=== PATIENT | male | born 1975 | race Caucasian/White ===

== ENCOUNTER 2020-09-03 18:15 | Emergency (ER) | payer MEDICAID, SELFPAY ==
--- NOTE | 2020-09-03 | XR_ITS ---
EXAMINATION: XR CHEST CLINICAL INFORMATION: Chest pain COMPARISON: None TECHNIQUE: Frontal portable view of the chest was obtained. 7:00 PM FINDINGS: No significant abnormality is noted involving the heart, lungs, mediastinum, bony thorax or soft tissues. IMPRESSION: Unremarkable examination.
--- NOTE | 2020-09-03 | CT_ITS ---
EXAMINATION: CT ABDOMEN AND PELVIS WITH CONTRAST CLINICAL INFORMATION: Left-sided pain. History of colostomy. COMPARISON: None TECHNIQUE: Multidetector volumetric images were obtained from the superior aspect of the liver through the pubic symphysis following administration 85 mL of Omnipaque 350 intravenous contrast. Sagittal and coronal reformatted images were obtained on the technologist's workstation. Oral contrast: No This CT examination was performed using dose optimization techniques as appropriate, variously including the following: *Automated exposure control *Adjustment of mA and/or kV according to patient size (this includes techniques or standardized protocols for targeted exams where dose is matched to indication/reason for exam; i.e. extremities or head) *Use of iterative reconstruction technique DLP: 481 mGy-cm FINDINGS: LUNG BASES: The visualized lung bases are unremarkable. LIVER, GALLBLADDER, AND BILIARY TREE: The liver is normal in size, shape, and attenuation. No focal hepatic lesion or biliary ductal dilatation is present. The gallbladder is unremarkable with no evidence of radiopaque gallstones, gallbladder wall thickening, or obvious pericholecystic inflammatory changes. PANCREAS: Unremarkable. SPLEEN: Unremarkable. ADRENAL GLANDS: Unremarkable. KIDNEYS AND URETERS: The kidneys are normal in size, shape, and attenuation. No hydronephrosis, hydroureter, or calculi seen. No perinephric stranding. BLADDER: Unremarkable. ABDOMINAL WALL/GASTROINTESTINAL TRACT: Status post partial colectomy with Avila's pouch and left-sided colostomy. No obstruction or edema of bowel. The ostomy site appears normal with no inflammation or fluid collection or parastomal hernia. Moderate volume of stool in the colon. The appendix is not seen. No inflammation the mesentery. LYMPH NODES: Normal. VASCULAR: Unremarkable. PELVIC VISCERA: Unremarkable. OSSEOUS STRUCTURES: Multilevel degenerative spondylosis of the spine. IMPRESSION: Status post partial colectomy with Avila's pouch and left-sided colostomy. No acute abnormality.
[2020-09-03 18:22] VITALS: BP 138/76; PULSE 66; PULSE 80; RESP 15; TEMP 37; O2SAT 95; O2SAT 99; BMI 19.2
[2020-09-03 18:53] VITALS: BP 138/76; PULSE 80; RESP 15; TEMP 37; O2SAT 99
--- NOTE | 2020-09-03 19:14 | ED_ITS ---
HPI - Abdominal Pain General Chief Complaint: Abdominal Pain Stated Complaint: cp/abd pain Time Seen by Provider: 09/03/20 18:44 Source: patient Mode of arrival: ambulatory History of Present Illness HPI narrative: 45-year-old male with a history of an ostomy complaining of left-sided abdominal pain. Radiating up to his chest. Patient states has been going on for couple days the abdomen without any vomiting. Has not had any stool from the ostomy. patient also states of pain radiating to his chest, chest has been hurting for 4 days which got constant over the past 3 hours. No diaphoresis no shortness of breath. No fevers or chills. MD elicited complaint: abdominal pain Severity: moderate Quality: sharp Radiation: LUQ and epigastric Exacerbating factors: eating Relieving factors: nothing Related Data Allergies Allergy/AdvReac Type Severity Reaction Status Date / Time No Known Allergies Allergy Unverified 09/03/20 18:31 Review of Systems Review of Systems Yes all other systems are reviewed and are negative Comments: Constitutional : No Weight loss, No Fever, No Chills, No Night Sweats, No Fatigue, No Malaise ENT/Mouth : No Hearing loss, No Ear Pain, No Nasal Congestion, No Sinus Pain, No Hoarseness, No sore throat, No Rhinorrhea, No Swallowing Difficulty Eyes: No Eye Pain, No Swelling, No Redness, No Foreign Body, No Discharge, No Vision Changes Cardiovascular : positive Chest Pain, No SOB, No Dyspnea on Exertion, No Orthopnea, No Edema, No Palpitations Respiratory : No Cough, No Sputum, No Wheezing, No Smoke Exposure, No Dyspnea Gastrointestinal : No Nausea, No Vomiting, No Diarrhea, No Constipation, Positive abdominal. positive ostomy Pain, No Hematochezia, No Melena Genitourinary : no irregular bleeding, No Dysuria, No Urinary Frequency, No Hematuria, No Urinary Incontinence, No Urgency, No Flank Pain, No Urinary Flow Changes, No Hesitancy Musculoskeletal : No joint pain, No Myalgias, No Joint Swelling Skin : No Skin Lesions, No rash Neuro : No Weakness, No Numbness, No Paresthesias, No Loss of Consciousness, No Dizziness, No Headache Psych : No Anxiety/Panic, No Depression, No SI/HI/AH/VH, No Social Issues, Heme/Lymph: No Bruising, No Bleeding,No Lymphadenopathy Endocrine : No Polyuria, No Polydipsia, No Temperature Intolerance Physical Exam Vital Signs and I&O and Narrative: Vital Signs and I&O: Vital Signs Temp 98.9 F 09/03/20 22:14 Pulse 57 09/03/20 22:14 Resp 16 09/03/20 20:29 BP 116/70 09/03/20 20:29 Pulse Ox 98 09/03/20 22:14 Intake & Output 09/03/20 09/03/20 09/04/20 06:59 18:59 06:59 Intake Total 1000 / 1000 Balance 1000 / 1000 Weight 68.039 kg Intake: Intake, IV Amoun t 1000 / 1000 0.9 % Sodium C hloride 1,000 ml 1000 / 1000 @ 999 mls/hr I VCONT .Q1H1M ARIELLA Rx#:[id number] Body Mass Index 19.2 vital signs reviewed Const: Other: Appearance: Alert. Oriented X3. No acute distress. mild discomfort Eyes: Pupils equal, round and reactive to light. ENT: Pharynx normal. Neck: Normal inspection. Neck supple. CVS: Normal heart rate and rhythm. Pulses normal. positive S1-S2 Respiratory: No respiratory distress. Breath sounds normal. Abdomen: Soft and \tender To left side abdomen. intact ostomy without gas in bag. no rash Skin: Skin warm and dry. Normal skin color. Normal skin turgor. Extremities: No lower extremity edema. No lower extremity edema. Neuro: Oriented X 3. No motor deficit. No sensory deficit. Course Course Course Narrative: patient re-examined throughout emergency department without signs of peritonitis. CT scan abdomen pelvis negative. Troponin negative EKG negative chest x-ray negative. At this point with chronicity of symptoms I doubt the patient has acute coronary syndrome. MDM - Abdominal Pain MDM Narrative Medical decision making narrative: 45-year-old male with a history of ostomy came in for abdominal pain however had a negative workup. This point patient will need to follow up with [facility] who follows him for his ostomy. Patient states he has not eaten solid food for several months however with chronicity of symptoms I do not think there is any emergency at this time Lab Data Result diagrams: 09/03/20 20:40 09/03/20 20:40 Labs: Lab Results 09/03/20 09/03/20 09/03/20 Range/Units 20:40 20:40 20:40 WBC 8.0 (4.8-10.8) X10*3/uL RBC 4.36 L (4.60-5.80) X10*6/uL Hgb 13.8 L (14.0-18.0) g/dl Hct 39.7 L (42-52) % MCV 91.1 (80-98) fL MCH 31.7 (27.0-33.0) pg MCHC 34.8 (31.0-36.0) g/dl RDW 12.5 (11.0-16.0) % Plt Count 268 (160-400) X10*3/uL MPV 9.5 (9.4-12.4) fL Immature Gran % (Auto) 0.2 (0.0-0.4) % Neut % (Auto) 59.6 (45-73) % Lymph % (Auto) 30.6 (20-40) % Tripp % (Auto) 7.0 (2-11) % Eos % (Auto) 2.1 (0-4) % Baso % (Auto) 0.5 (0-2) % Lymph # (Auto) 2.5 (1.2-4.9) X10*3/uL Tripp # (Auto) 0.6 (0.1-1.2) X10*3/uL Eos # (Auto) 0.2 (0.0-0.4) X10*3/uL Baso # (Auto) 0.0 (0.0-0.2) X10*3/uL Abs Immat Gran (auto) 0.02 (0.00-0.03) X10*3/uL Absolute Neuts (auto) 4.8 (2.0-8.3) X10*3/uL Absolute Nucleated RBC 0.000 (0.0-0.012) X10*3/uL Nucleated RBC % (auto) 0.0 (0.0-0.2) /100WBC Sodium 139 (135-145) mmol/L Potassium 3.9 (3.3-5.1) mmol/l Chloride 105 (96-108) mmol/L Carbon Dioxide 28 (22-29) mmol/L Anion Gap 10 L (12-20) BUN 8 L (9-16) mg/dL Creatinine 0.85 (0.5-1.4) mg/dL Estim Creat Clear Calc 104.5 Estimated GFR > 60 Random Glucose 81 (60-115) mg/dL Calcium 8.7 (8.4-10.2) mg/dL Total Bilirubin 0.5 (0.0-1.0) mg/dL Direct Bilirubin 0.2 (0.0-0.5) mg/dL AST 17 (5-37) U/L ALT 17 (0-40) U/L Alkaline Phosphatase 51 (39-117) U/L Troponin I High Sens < 3.5 (<3.5-35.0) ng/L Total Protein 6.2 L (6.5-8.0) g/dL Albumin 4.1 (3.5-5.0) g/dL Lipase 31 (8-78) U/L Discharge Plan Discharge Clinical Impression: Abdominal pain, Chest pain Patient Disposition: Home, Self-Care Instructions: Chest Pain (ED), Abdominal Pain (ED) Additional Instructions: Thank you for visiting the emergency department today. If your symptoms worsen or do not resolve completely please return to the emergency department immediately or call 911. if he have any questions please call your primary care physician Referrals: Og Hernandes MD [Primary Care Provider] - 2 days Interventions: ED Discharge Assessment Last Done: 09/03/20 23:30 Discharge Date/Time: 09/03/20 23:32 [facility] Past Medical History Medical History No known health problems Surgical History H/O colectomy Social History Social History Smoking Status: Current every day smoker Use of substances other than those prescribed or required for medical reasons: No Advance Directives: No Advance Directives Information Provided: Yes
[2020-09-03] MEDS: Morphine Sulfate 4 MG/ML CARTRIDGE IVPUSH ×2 (19:33→20:37)
[2020-09-03] MEDS: ondansetron HCL 4 MG/2 ML VIAL IVPUSH (19:33)
[2020-09-03] MEDS: 0.9 % Sodium Chloride 1,000 ML 999 ML IVCONT (19:34)
[2020-09-03 20:29] VITALS: BP 116/70; PULSE 57; RESP 16; TEMP 36.6; O2SAT 98
[2020-09-03 20:45] LABS: MANUAL DIFF FLAG NO
[2020-09-03 20:49] LABS: Basophils Percent Auto 0.5 % (0-2); Eosinophils Absolute Auto 0.2 X10*3/uL (0.0-0.4); Eosinophils Percent Auto 2.1 % (0-4); Hematocrit 39.7 % (42-52); Hemoglobin 13.8 g/dl (14.0-18.0); Imm Gran Abs Auto 0.02 X10*3/uL (0.00-0.03); Imm Gran Pct Auto 0.2 % (0.0-0.4); Lymphocytes Absolute Auto 2.5 X10*3/uL (1.2-4.9); Lymphocytes Percent Auto 30.6 % (20-40); Mean Corpuscular HGB Conc 34.8 g/dl (31.0-36.0); Mean Corpuscular Hemoglobin 31.7 pg (27.0-33.0); Mean Corpuscular Volume 91.1 fL (80-98); Mean Platelet Volume 9.5 fL (9.4-12.4); Monocytes Absolute Auto 0.6 X10*3/uL (0.1-1.2); Neutrophils Absolute Auto 4.8 X10*3/uL (2.0-8.3); Neutrophils Percent Auto 59.6 % (45-73); Platelet Count 268 X10*3/uL (160-400); Red Blood Count 4.36 X10*6/uL (4.60-5.80); Red Cell Distribution Width 12.5 % (11.0-16.0)
[2020-09-03 21:08] LABS: Alanine Aminotransferase 17 U/L (0-40); Albumin Level 4.1 g/dL (3.5-5.0); Alkaline Phosphatase 51 U/L (39-117); Anion Gap 10 (12-20); Aspartate Amino Transferase 17 U/L (5-37); Bilirubin Direct 0.2 mg/dL (0.0-0.5); Bilirubin Total 0.5 mg/dL (0.0-1.0); Blood Urea Nitrogen 8 mg/dL (9-16); Calcium 8.7 mg/dL (8.4-10.2); Carbon Dioxide 28 mmol/L (22-29); Chloride 105 mmol/L (96-108); Creatinine Clr Calc Pharmacy 104.5; Estimated Glomerular Filt Rate > 60; Glucose Random 81 mg/dL (60-115); Lipase 31 U/L (8-78); Potassium 3.9 mmol/l (3.3-5.1); Sodium 139 mmol/L (135-145); Total Protein 6.2 g/dL (6.5-8.0)
[2020-09-03 21:13] LABS: Troponin-I High Sensitivity < 3.5 ng/L (<3.5-35.0)
[2020-09-03] MEDS: iohexoL 350 MG/ML 100 ML INFUS..BTL IV (22:04)
[2020-09-03 22:14] VITALS: PULSE 57; TEMP 37.2; O2SAT 98
== END 2020-09-03 23:32 | disposition home or self-care (01) ==
PROVIDERS: Emergency Provider Emergency Medicine; PCP Family Medicine
DX: R10.12 Left upper quadrant pain (principal); R10.13 Epigastric pain; R07.9 Chest pain, unspecified; F17.200 Nicotine dependence, unspecified, uncomplicated; Z93.3 Colostomy status
CPT/HCPCS: 36415; 71045; 74177; 80048; 80076; 83690; 84484; 85025; 96361; 96374; 96375; 96376; 99284; J2270

== ENCOUNTER 2022-04-21 12:58 | Day surgery (SDC) | payer MEDICAID, SELFPAY ==
[2022-04-21 13:34] VITALS: BMI 17.3
[2022-04-21 13:38] VITALS: BP 100/58; PULSE 57; RESP 16; TEMP 36.4; O2SAT 96
[2022-04-21] MEDS: Lactated Ringers 1,000 ML 100 ML IVCONT (14:00)
--- NOTE | 2022-04-21 14:22 | HO.ANESPROP2 ---
HPI - Anesthesia Eval Consult details Narrative: 46 M for colonoscopy [facility] Past Medical History Medical History (Updated 04/21/22 @ 13:48 by Brianna Krishnan, RN) Colostomy in place Functional capacity: independent ambulation Family History Family history of problems with anesthesia: No Surgical History Surgical History (Updated 04/21/22 @ 13:47 by Brianna Krishnan RN) H/O colectomy Hx of tonsillectomy History of Problems with Anesthesia: No Social History Social History Alcohol intake: never Patient Tobacco Use Status: Former Tobacco user Tobacco use type: Cigarette Smoked in Last 30 Days: No Use of substances other than those prescribed or required for medical reasons: No Are you DNR?: No Advance Directives: No Advance Directives Information Provided: Yes Recently lost weight without trying: Yes How much weight loss: 34pounds or more Eating poorly because of decreased appetite: Yes Nutrition screen score: 7 Nutrition Risks: Emaciation/Cachexia Meds Allergies Allergy/AdvReac Type Severity Reaction Status Date / Time No Known Allergies Allergy Verified 04/21/22 13:48 Active Medications: Current Medications Lactated Ringer's (Lr) 1,000 mls @ 100 mls/hr IVCONT .Q10H ARIELLA Last Admin: 04/21/22 14:00 Dose: 100 mls/hr Documented by: Home Medications Medication Instructions Recorded Confirmed Last Taken Type erythromycin 500 mg tablet,delayed mg PO 04/21/22 04/21/22 Unknown History release hydrocodone 5 mg-acetaminophen 325 1 tab PO TID PRN 04/21/22 04/21/22 Unknown History mg tablet linaclotide 290 mcg capsule 1 cap PO DAILY 04/21/22 04/21/22 Unknown History (Linzess) omeprazole 20 mg capsule,delayed 1 cap PO DAILY 04/21/22 04/21/22 Unknown History release polyethylene glycol 3350 17 g PO QID 04/21/22 Unknown History gram/dose oral powder (Gavilax) prucalopride 2 mg tablet mg PO 04/21/22 Unknown History (Motegrity) Exam Exam Date and Time: April 21, 2022 1422 Height,Weight and Vital Signs: Height 6 ft 2 in Weight 61.235 kg Last Vital Signs Temp 97.6 F 04/21/22 13:38 Pulse 57 04/21/22 13:38 Resp 16 04/21/22 13:38 BP 100/58 L 04/21/22 13:38 Pulse Ox 96 04/21/22 13:38 Airway Mallampati Class: III TM Dist: >3cm Neck ROM: Full Loose/Missing/Broken Teeth: Yes (Chipped teeth and poor dentition ) Heart: s1 , S2 Lungs: b/l breath sounds Assessment and Plan Assessment Anesthesia Assessment: Anesthesia Plan Discussed and Chart Reviewed Final Anesthetic Review Family History of Problems with Anesthesia: No History of Problems with Anesthesia: No NPO: Yes ASA Class: II Final Preanesthetic Review: Meds/Allgs Chart Reviewed, Consent Obtained/Reviewed and Anes Risks/Benef Reviewed Patient Risk: Intermediate Procedure Risk: Intermediate Anesthetic Plan Anesthetic Plan: GA Disposition: Standard PACU
--- NOTE | 2022-04-21 15:04 | MHC.SHP ---
Pre-Procedural Eval Section A Date of Service: 04/21/22 The patient is an INPATIENT: No Changes since office visit: No Cold of Flu in the past 2 weeks, No New Medical Problems, No Changes in Medication and No Patient answered all questions The History & Physical has been completed within 30 days and I have reviewed it.: Yes Section B Chief Complaint: abnormal findings digestive tract Allergies: Allergies Allergy/AdvReac Type Severity Reaction Status Date / Time No Known Allergies Allergy Verified 04/21/22 13:48 Plan I have reviewed the history and physical and performed a pertinent physical examination on my patient. No changes have occurred unless specified.
[2022-04-21 15:56] VITALS: BP 116/79; PULSE 83; RESP 16; TEMP 36.6; O2SAT 99
--- NOTE | 2022-04-21 15:59 | PM.OP ---
Brief Operative Note Date of Service: 04/21/22 Pre-op diagnosis: abnormal xray gi tract Post-op diagnosis: same (normal exam) Surgeon: Nicholas Ricks Anesthesia: MAC Was an Video Editing Internship used for this Procedure?: No Estimated blood loss (mL): 5 Pathology: other (randomol bxs) Condition: stable Disposition: PACU
[2022-04-21 16:11] VITALS: BP 123/72; PULSE 83; RESP 18; TEMP 36.6; O2SAT 100
--- NOTE | 2022-04-22 05:08 | OP_ITS ---
SURGEON: Nicholas Ricks MD INDICATIONS: Abnormal x-ray of the GI tract. PREOPERATIVE DIAGNOSIS: POSTOPERATIVE DIAGNOSIS: PROCEDURE PERFORMED: Colonoscopy to 30 cm via rectum and to terminal ileum via colostomy. ESTIMATED BLOOD LOSS: COMPLICATIONS: ANESTHESIA: Medications, monitored anesthesia care. ASSISTANTS: SPECIMENS: DESCRIPTION OF PROCEDURE: History and physical performed. The risks and benefits of the procedure were explained to the patient. Informed consent was obtained. The patient was placed in the left lateral decubitus position. A digital rectal exam was performed and was found to be normal. The Olympus pediatric video colonoscope was introduced into the rectum and advanced to the end of the diverted rectal segment, which was located at approximately 30 cm. Examination was performed. The scope was removed. He was repositioned on his back. The colostomy was examined with the 5th finger. The Olympus pediatric video colonoscope was introduced into the colostomy and advanced to the terminal ileum. Examination was performed. The scope was removed. He tolerated the procedure well and was returned to the recovery area in stable condition. FINDINGS: The diverted colon segment extended for approximately 25 to 30 cm and the mucosa showed some slight pallor and friability consistent with diversion colitis. [place] were visible at the 30 cm mona, and retroflexed examination was normal. Biopsies were obtained randomly. The colostomy appeared normal. The mucosa of the colon was normal. The terminal ileum was examined for approximately 15 cm and no mucosal abnormalities were noted. No stricture was seen. There was no evidence of Crohn disease. There was no narrowing of the mucosa in the terminal ileum or colon. A single random biopsy was obtained from the terminal ileum and random biopsies were obtained from the colon. IMPRESSION: Normal colonoscopy. RECOMMENDATIONS: Follow up the biopsy results. Screening colonoscopy is recommended every 10 years for average risk individuals. MD ALINE Weinstein/CORINE / [id number] [facility]
== END 2022-04-21 16:32 | disposition home or self-care (01) ==
PROVIDERS: PCP Internal Medicine Gastroenterology; Visit Provider Internal Medicine Gastroenterology
PROC: 0DJD8ZZ Inspection of Lower Intestinal Tract, Via Natural or Artificial Opening Endoscopic (ICD-10-PCS; CPT 45378; principal; 2022-04-21 14:20)
DX: R93.3 Abnormal findings on diagnostic imaging of other parts of digestive tract (principal); Z93.3 Colostomy status; Z90.49 Acquired absence of other specified parts of digestive tract; M99.05 Segmental and somatic dysfunction of pelvic region; K59.89 Other specified functional intestinal disorders; Z79.899 Other long term (current) drug therapy
CPT/HCPCS: 45330; 44388; 88305; J2250

== ENCOUNTER 2024-10-24 09:28 | Emergency (ER) | payer MEDICAID, SELFPAY ==
[2024-10-24 09:41] VITALS: BP 112/72; PULSE 87; RESP 18; TEMP 37.1; O2SAT 94; O2SAT 97; BMI 17.6
--- NOTE | 2024-10-24 11:34 | PC.NURSE ---
patient requesting to leave and be driven to [place] by friend in room. provider aware.
== END 2024-10-24 12:05 | disposition left against medical advice (07) ==
PROVIDERS: Emergency Provider Emergency Medicine Emergency Medical Services; PCP Internal Medicine
DX: R10.9 Unspecified abdominal pain (principal); Z53.21 Procedure and treatment not carried out due to patient leaving prior to being seen by health care provider
CPT/HCPCS: 99281; 99283

== ENCOUNTER 2025-07-22 16:23 | Outpatient (REF) | payer MEDICAID, SELFPAY ==
[2025-07-22 16:28] LABS: MANUAL DIFF FLAG NO
[2025-07-22 16:31] LABS: Hematocrit 35.8 % (42.0-52.0); Hemoglobin 11.7 g/dl (14.0-18.0); Imm Gran Abs Auto 0.01 X10*3/uL (0.00-0.03); Imm Gran Pct Auto 0.2 % (0.0-0.4); Lymphocytes Absolute Auto 1.1 X10*3/uL (1.2-4.9); Mean Corpuscular HGB Conc 32.7 g/dl (31.0-36.0); Mean Corpuscular Hemoglobin 29.5 pg (27.0-33.0); Mean Corpuscular Volume 90.4 fL (80.0-98.0); NRBC Abs Auto 0.000 X10*3/uL (0.0-0.012); NRBC Pct Auto 0.0 /100WBC (0.0-0.2); Platelet Count 282 X10*3/uL (160-400); Red Blood Count 3.96 X10*6/uL (4.60-5.80); White Blood Count 5.7 X10*3/uL (4.8-10.8)
[2025-07-22 18:08] LABS: Alanine Aminotransferase 46 U/L (0-40); Albumin Level 3.8 g/dL (3.5-5.0); Alkaline Phosphatase 150 U/L (39-117); Anion Gap 13 (12-20); Aspartate Amino Transferase 39 U/L (5-37); Blood Urea Nitrogen 28 mg/dL (9-16); Calcium 8.7 mg/dL (8.4-10.2); Carbon Dioxide 26 mmol/L (22-29); Chloride 109 mmol/L (96-108); Estimated Glomerular Filt Rate > 60; Magnesium 2.2 mg/dL (1.6-2.6); Potassium 4.4 mmol/L (3.3-5.1); Sodium 144 mmol/L (135-145); Total Protein 6.4 g/dL (6.5-8.0); Triglycerides 85 mg/dL (<150)
--- OUTSIDE RECORDS SUMMARY | 2025-07-22 18:09 | XMS_ITS | Encounter Summary ---
Author Organization [facility] Address [address] [place] [address] Care Team Providers Care [employer] Football Coach Name Role Phone Juan Manuel Haley Primary Care Provider [phone] Reason for Visit * Reason Onset Date Comments Requesting Urgent Appt with Dr. Ortez Encounter Details Date Type Department Care Team (Late st Contact Info) Description 02/10/2021 Telephone [facility] Central Scheduling Department [address] [place] [address] Telephone Intake, Staff Requesting Urgent Appt with Dr. Ortez Social History Tobacco Use Types Packs/Day Years Used Date Smoking Tobacco: Every Day Cigarettes 0.5 25 Smokeless Tobacco: Never Comments:: Alcohol Use Standard Drinks/Week Comments No 0 (1 standard drink = 0.6 oz pur e alcohol) Sober for 6 years Sex and Gender Information Value Date Recorded Sex Assigned at Not on file Legal Sex Male 11:37 AM EDT Gender Identity Not on file Sexual Orientation Not on file documented as of this encounter Miscellaneous Notes * Telephone Encounter - Alina Barger - 02/12/2021 12:18 PM EDT Spoke to pt he is scheduled with Famiila 02/18/21@930am. PT is aware a plan will be set up who to transition care to after KB leaves. * Telephone Encounter - Genie Lentz RN - 02/10/2021 1:54 PM EDT Rachel can you see this pt? He was suppose to have an appt in feb but no showed. * Telephone Encounter - Kaden Jarret - 02/10/2021 1:45 PM EDT PT called to schedule an urgent follow up appt with Dr. Ortez No schedule populating since provider is leaving (noted in scheduling rules for 03/27/21) PT went to have a surgery that provider recommended but surgery only consisted of being opened up and sewn back together. PT looking for urgent follow up to get answers and he's frustrated - stated he hasn't eaten anything in 6 months PT can be reached at [phone] documented in this encounter Plan of Treatment Not on file documented as of this encounter Visit Diagnoses Not on filedocumented in this encounter Additional Health Concerns Infection Onset Date Last Indicated Resolved Time R/O Respiratory Virus Infection 11/16/2022 2 11/16/2022 12:35 PM EST R/O Influenza 11/16/2022 11/16/2022 11/16/2022 12: 35 PM EST COVID-19 - Suspected infection 11/16/2022 11/16/2022 11/16/2022 12:35 PM EST documented as of this encounter Care Teams [employer] Football Coach Relationship Specialty Start Date End Date Juan Manuel Haley [address] [place] [address] PCP - General Internal Medicine 11/10/22 documented as of this encounter
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
--- OUTSIDE RECORDS SUMMARY | 2025-07-22 18:09 | XMS_ITS | Clinical Summary ---
Author Organization [facility] Address [address] [facility] [address] [place] [address] Care Team Providers Care Snap Shearer Name Role Phone Juan Manuel Haley MD Primary Care Provider [phone] Allergies No known active allergies Medications Vitamin C 500 mg tablet Take 500 mg by mouth twice daily. 01/11/20 24 Active butalbital-acetami nophen-caff 50-325-40 mg tablet Take by mouth. 02/01/20 24 Active diphenoxylate-atro pine (Lomotil) 2.5-0.025 mg tablet Take 2 tablets by mouth if needed in the morning, at noon, in the evening, and at bedtime. 08/13/20 24 Active fentaNYL (Duragesic) 50 mcg/hr patch 1 patch every 3 (three) days. 07/31/20 24 Active fluconazole (Diflucan) 200 mg tablet See administration instructions. 05/11/20 24 Active hydrocortisone (Anusol-HC) 2.5 % rectal cream Insert into the rectum three times daily. 06/27/20 24 Active Lidocaine Viscous 2 % solution See administration instructions. 08/10/20 24 Active loperamide (Imodium) 2 mg capsule Take 2 mg by mouth twice daily. 06/13/20 24 Active memantine (Namenda) 5 mg tablet Take 5 mg by mouth twice daily. 08/10/20 24 Active morphine (MSIR) 30 mg tablet Take 30 mg by mouth if needed in the morning, at noon, in the evening, and at bedtime. 01/06/20 24 Active ondansetron ODT (Zofran-ODT) 4 mg disintegrating tablet Take 4 mg by mouth three times daily. 07/23/20 24 Active oxyCODONE (Roxicodone) 20 mg immediate release tablet Take 20 mg by mouth every 6 (six) hours if needed. 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 90 tablet 1 03/15/20 25 Active Encounters Date Type Department Care Team Description 04/24/2025 Telephone [facility] Gastroenterology [address] [place] [id number] Melvin Barber MD R/s nutrition appt from Last 3 Months Social History Tobacco Use Types Packs/Day Years Used Date Smoking Tobacco: Never Assessed Sex and Gender Information Value Date Recorded Sex Assigned at Not on file Legal Sex Male 1:12 PM EDT Gender Identity Not on file Sexual Orientation Not on file Last Filed Vital Signs Vital Sign Reading Time Taken Comments Blood Pressure 111/65 01/30/2025 12:04 PM EST Pulse 70 01/30/2025 12:04 PM EST Temperature - - Respiratory Rate - - Oxygen Saturation 93% 08/15/2024 10:27 AM EDT Inhaled Oxygen Concentration - - Weight 66.7 kg (147 lb) 01/30/2025 12:04 PM EST Height 182.9 cm (6') 01/30/2025 12:04 PM EST Body Mass Index 19.94 01/30/2025 12:04 PM EST Plan of Treatment Health Maintenance Due Date Last Done Comments CT Colonography 1974 FIT-DNA 1974 FIT 1974 FOBT 1974 HIV Screening 1974 Lipid Panel 1974 Sigmoidoscopy 1974 MMR Vaccines (1 of 1 - Standard series) 1975 Hepatitis C Screening 1992 Hepatitis B Vaccines (1 of 3 - 19+ 3-dose series) 1993 Pneumococcal Vaccine: 50+ Years (1 of 1 - PCV) 2024 Zoster Vaccines (1 of 2) 2024 COVID-19 Vaccine (4 - 2023-2 5 season) 2024 10/11/2021, 04/08/2021, 03/11/2021 Depression Screening 11/28/2024 Influenza Vaccine (#1) 2025 , 10/16/2015 DTaP/Tdap/Td Vaccines (2 - T d or Tdap) 10/15/2025 10/15/2015 Colonoscopy 12/22/2030 12/22/2020, 12/21/2018 Colorectal Cancer Screening 12/22/2030 HIB Vaccines Aged Out No longer eligi ble based on patient's age to complete this topic HPV Vaccines Aged Out No longer eligi ble based on patient's age to complete this topic Hepatitis A Vaccines Aged Out No long er eligible based on patient's age to complete this topic IPV Vaccines Aged Out No longer eligi ble based on patient's age to complete this topic Meningococcal B Vaccine Aged Out No l onger eligible based on patient's age to complete this topic Meningococcal Vaccine Aged Out No flavia serge eligible based on patient's age to complete this topic Rotavirus Vaccines Aged Out No longer eligible based on patient's age to complete this [place] [address] [place] [address] [place] [id number] Care Teams Snap Shearer Relationship Specialty Start Date End Date Juan Manuel Haley MD [address] [place] [address] PCP - General Vehicle Maintenance Supervisor 08/15/24
--- OUTSIDE RECORDS SUMMARY | 2025-07-22 18:09 | XMS_ITS ---
Author Organization [facility] Address [address] [address] Care Team Providers Care Fire Information Officer Name Role Phone Juan Manuel Haley MD Primary Care Provider [phone] [facility] Status:Enrolled (Active) Start date:03/18/2025 Enrollment date:03/18/2025 Current support & services provided:Benefits and PA Management Continued Care and Services Coordination
--- OUTSIDE RECORDS SUMMARY | 2025-07-22 18:09 | XMS_ITS | Encounter Summary ---
Author Organization [facility] Address [address] [place] [address] Care Team Providers Care Skein Yarn Dyer Helper Name Role Phone Juan Manuel Haley Primary Care Provider [phone] Encounter Details Date Type Department Care Team (Late st Contact Info) Description 02/02/2021 Orders Only [facility] Surgery [address] [place] [id number] Shabnam Saunders MD [address] [place] [address] [id number] Social History Tobacco Use Types Packs/Day Years [...] on file documented as of this encounter Plan of Treatment Not on file documented as of this encounter Visit Diagnoses Not on filedocumented in this encounter Additional Health Concerns Infection Onset Date Last Indicated Resolved Time R/O Respiratory Virus Infection 11/16/2022 11/16/2022 12:35 PM EST R/O Influenza 11/16/2022 11/16/2022 11/16/2022 12: 35 PM EST COVID-19 - Suspected infection 11/16/2022 11/16/2022 11/16/2022 12:35 PM EST documented as of this encounter Care Teams Skein Yarn Dyer Helper Relationship Specialty Start Date End Date Juan Manuel Haley [address] [place] [address] PCP - General Internal Medicine 11/10/22 documented as of this encounter
--- OUTSIDE RECORDS SUMMARY | 2025-07-22 18:09 | XMS_ITS | Clinical Summary ---
Author Organization [employer] Address [address] [place] [address] [address] [place] [address] Care Team Providers Care Project Crew Worker Name Role Phone Unavailable Primary Care Provider Unavailabl e Social History Tobacco Use Types Packs/Day Years Used Date Smoking Tobacco: Never Assessed Sex and Gender Information Value Date Recorded Sex Assigned at Male 09/27/2022 10:24 AM EDT Legal Sex Male 10:24 AM EDT Gender Identity Not on file Sexual Orientation Not on file Plan of Treatment Health Maintenance Due Date Last Done Comments CT Colonography 1974 Colonoscopy 1974 Colorectal Cancer Screening 1974 Depression Screening 1974 FIT DNA/Cologuard 1974 FIT 1974 FOBT 1974 HIV Screening 1974 Lipid Panel 1974 SDOH Screening 1974 Sigmoidoscopy 1974 Disability Screening 1974 Alcohol/Substance Use Screening 1986 Tobacco Screening 1986 Family Planning (PISQ) 1989 Hepatitis C Screening 1992 Hepatitis B Vaccines (1 of 3 - 19+ 3-dose series) 1993 Pneumococcal Vaccine: 50+ Ye ars (1 of 1 - PCV) 2024 Zoster Vaccines (1 of 2) 2024 COVID-19 Vaccine (1 - 2023-2 5 season) 2024 Influenza Vaccine (#1) 2025 10/16/2015 DTaP/Tdap/Td Vaccines (2 - T d or Tdap) 10/15/2025 10/15/2015 RSV Patients and Pa tients Aged 60 years or older (1 - 1-dose 75+ series) 2049 HIB Vaccines Aged Out No longer eligi [...] on patient's age to complete this topic RSV under 20 months Aged Out No longe r eligible based on patient's age to complete this topic Rotavirus Vaccines Aged Out No longer eligible based on patient's age to complete this topic Insurance [id number]
--- OUTSIDE RECORDS SUMMARY | 2025-07-22 18:10 | XMS_ITS | Clinical Summary ---
Author Organization [facility] Address [address] [place] [address] Care Team Providers Care Qa Analyst Name Role Phone Juan Manuel Haley Primary Care Provider [phone] Allergies No known active allergies Medications Linzess 290 mcg capsule Take 290 mcg by mouth once a day. 11/12/2022 Active omeprazole (PriLOSEC) 20 mg capsule Take 20 mg by mouth 2 times a day. 11/05/2022 Active oxyCODONE IR (ROXICODONE) 5 mg tablet Take 5 mg by mouth every 4 hours as needed. 11/12/2022 Active acetaminophen (TYLENOL) 325 mg tablet Take 650 mg by mouth every 6 hours as needed for pain. Active bisacodyL (DULCOLAX) 5 mg EC tablet Take 10 mg by mouth at bed time. Active Active Problems Problem Noted Date Diagnosed Date Inadequate pain control 11/16/2022 Assessment & Plan (11/16/2022 10:17 PM EST): Patient reports couple months of lower abdominal and pelvic pain, worse for the past 1 week, associated with nausea and intermittent vomiting. Likely associated with his underlying pelvic floor dysfunction . He is on Tylenol and oxycodone 5 mg every 4 hours as needed from his PCP. - Continue Tylenol, oxycodone 5 mg x 4 hours as needed, low-dose morphine for breakthrough pain - May consider psych consult - Encouraged him to ambulate with assistance. Fall precaution, Malnutrition 11/16/2022 Assessment & Plan (11/16/2022 10:11 PM EST): BMI 16.05. Patient reports he has been losing weight because he is unable to take good p.o., he has been on liquid diet mostly. He states that he cannot take solid foods as food will be trapped in his body. He does not believe that nutrition consult will help him as he is not going to eat the food we recommended. -Encouraged him to try solid food - Protein supplements with Ensure clear 3 times daily -Monitor electrolytes, replete as needed Anxiety 11/16/2022 Smoking 11/16/2022 Assessment & Plan (11/16/2022 10:28 PM EST): Patient reports that he started smoking again 2 months ago, 2 cigarettes/day and stopped 2 days ago - nicotine gum prn - encouraged him to stop smoking - nebs prn Chronic idiopathic constipation 01/13/2021 Encounter for screening colonoscopy 09/16/[address] 01/05/2019 Assessment & Plan (11/16/2022 10:17 PM EST): Patient has colostomy bag, which is in place, his abdominal is soft but diffusely tenderness. KUB suggesting ileus, which is chronic finding on his CT scan. Patient reported minimal output from the colostomy bag, he has to do special maneuver to make gravity for stool to come out. He is not eating much also, on liquid diet only. He's taking dulcolax 10mg nightly and high dose miralax daily prn, he states that's very important for him. - continue to monitor output - continue home dose laxatives - encourage mobility Fecal soiling due to fecal incontinence 08/09/20 17 Constipation due to pelvic floor outlet obstruct ion 06/01/2017 Pelvic floor dysfunction 06/01/2017 Assessment & Plan (11/16/2022 10:09 PM EST): He was seen by surgery 11/10, no further surgery to be offered. Per Dr. Diaz last note I reviewed and discussed his prior surgical history and expressed that I do not feel he would benefit from any additional surgery. Since seeing me he is also seen at least 2 or 3 more gastroenterologists and motility specialist. He also saw surgeon in [facility]. No one is recommending any additional surgery at this time. I reiterated that as a surgeon I feel that I have exhausted all of my options for him. Chronic constipation 05/03/2017 Closed fracture of left clavicle 03/25/2014 Family History * Patient is adopted Medical History Relation Name Comments Other Father No pertinent fa balta history Other Other 1 Family History of cardiac disorder Other Other 2 Family History of malignant neoplasm Relation Name Status Comments Father Other 1 Other 2 Social History Tobacco Use Types Packs/Day Years Used Date Smoking Tobacco: Every Day Cigarettes 0.3 25 Smokeless Tobacco: Never Tobacco Cessation:Ready to Q uit: Not Asked; Counseling Given: Not Answered Comments:: Alcohol Use Standard Drinks/Week Comments No 0 (1 standard drink = 0.6 oz pur e alcohol) Sober for 6 years Sex and Gender Information Value Date Recorded Sex Assigned at Not on file Legal Sex Male 11:37 AM EDT Gender Identity Not on file Sexual Orientation Not on file Last Filed Vital Signs Vital Sign Reading Time Taken Comments Blood Pressure 128/78 11/17/2022 11:17 AM EST Pulse 57 11/17/2022 11:17 AM EST Temperature 36.7 C (98.1 F) 11/17/2022 11:17 AM EST Respiratory Rate 16 11/17/2022 11:17 AM EST Oxygen Saturation 98% 11/17/2022 11:17 AM EST Inhaled Oxygen Concentration - - Weight 59.2 kg (130 lb 8.2 oz) 11/16/2022 9:02 P M EST Height 188 cm (6' 2 ) 11/16/2022 9:02 PM EST Body Mass Index 16.76 11/16/2022 9:02 PM EST Plan of Treatment Health Maintenance Due Date Last Done Comments Cologuard 1974 FOBT / Fit Test 1974 HIV Screening 1974 Hepatitis C Screening 1974 Sigmoidoscopy 1974 Hepatitis B Vaccines (1 of 3 - 19+ 3-dose series) 1993 Pneumococcal Vaccine: 50+ Ye ars (1 of 2 - PCV) 1993 Zoster Vaccines (1 of 2) 2024 COVID-19 Vaccine (4 - 2023-2 5 season) 2024 10/11/2021, 04/08/2021, 03/11/2021 Alcohol/Substance Use Screening 11/28/2024 Depression Screening and Follow-Up 11/28/2024 Social Drivers of Health Chasity ual Screening 11/28/2024 Influenza Vaccine (#1) 2025 09/16/2021, 2014 DTaP,Tdap,and Td Vaccines (2 - Td or Tdap) 10/15/2025 10/15/2015 Colon Cancer Screening 12/22/2030 Colonoscopy 12/22/2030 12/22/2020, 11/29, 12/22/2020, Additional history exists RSV Vaccine (60+ years old a nd patients) (1 - 1-dose 75+ series) 2049 Procedures * Due to [place] [employer] law, this organization might not be sharing negative HIV tests. Procedure Name Priority Date/Time Associated Diagnosis Comments COLONOSCOPY 12/22/2020 from Last 3 Months or Most Recently Relevant to Health Maintenance Results * Due to [place] [employer] law, this organization might not be sharing negative HIV tests. * COLONOSCOPY (12/22/2020) Narrative Procedure Note Willi Ortez MD - 12/22/2020 3:27 PM EST Gastroenterology Patient Name: Esa Gonzalez Procedure Date: 12/22/2020 3:27 PM Date of : 1975 Admit Type: Outpatient Age: 45 Room: [place] [address] Gender: Male Note Status: Finalized Attending MD: Willi Ortez MD Procedure: Colonoscopy Indications: Abnormal CT of the GI tract, Abnormal CT A/P finding-kinking of colon-close to ostomy site Comorbidities Patient Profile: This is a 45 year old male. Refer to note in patientchart for documentation of history and physical. Providers: Willi Ortez MD, Kamron Cheema MD (Fellow) Referring MD: Requesting Provider: Medicines: See the Anesthesia note for documentation of the administered medications Complications: No immediate complications. Estimated Blood Loss: Estimated blood loss: none. Procedure: Pre-Anesthesia Assessment: - Prior to the procedure, a History and Physical was performed, and patient medications and allergies were reviewed. The patient's tolerance of previousanesthesia was also reviewed. The risks and benefits of theprocedure and the sedation options and risks were discussed withthe patient. All questions were answered, and informedconsent was obtained. Prior Anticoagulants: The patient hastaken no previous anticoagulant or antiplatelet agents. ASA Grade Assessment: III - A patient with severe systemic disease. After reviewing the risks and benefits, the patient was deemed in satisfactory condition to undergo the procedure. - Prior to the procedure, a History and Physical was performed, and patient medications, allergies and sensitivities were reviewed. The patient's tolerance of previous anesthesia was reviewed. - The risks and benefits of the procedure and thesedation options and risks were discussed with the patient. All questions were answered and informed consent wasobtained. - The heart rate, respiratory rate, oxygen saturations, blood pressure, adequacy of pulmonary ventilation, and response to care were monitored throughout theprocedure. After I obtained informed consent, the scope was passed under direct vision. Throughout the procedure, the patient's blood pressure, pulse, and oxygen saturations were monitored continuously. The endoscope wasintroduced through the sigmoid colostomy and advanced to thececum, identified by appendiceal orifice and ileocecal valve.The colonoscopy was performed without difficulty. Thepatient tolerated the procedure well. The quality of the bowel preparation was adequate. Findings: The colon (entire examined portion) appeared normal. There is no endoscopic evidence of luminal deformity in the colon corresponding to the radilogical abnormality in the descending colonand stoma. Impression: - The entire examined colon is normal. - No specimens collected. Recommendation: - Discharge patient to home (with escort). - Resume previous diet. - Continue present medications. - Patient to follow with Dr. Aleisha Diaz incolorectal surgery - [facility] The signs and symptoms of potential delayedcomplications were discussed with the patient. Return to normal activities tomorrow. Written discharge instructionswere provided to the patient. - The patient will be observed post-procedure, untilall discharge criteria are met. Attending Participation: I was present and participated during the entire procedure, including non-king portions. Willi Ortez MD 12/22/2020 4:27:04 PM This report has been signed electronically. Number of Addenda: 0 Note Initiated On: 12/22/2020 3:27 PM Willi Ortez MD PROVATION PROCEDURES Fi nal Result from Last 3 Months or Most Recently Relevant to Health Maintenance [place] [id number] Advance Directives Documents on File Type Date Recorded Patient Brake Coupler Dinkey Expl anation Health Care Proxy 02/02/2021 12:38 PM Health Care Proxy 09/20/2017 11:17 AM * Full Code (Latest Code Status on File) Date Activated Date Inactivated Comments 11/16/2022 9:54 PM 11/17/2022 3:34 PM * Presumed Full Code Date Activated Date Inactivated Comments 11/16/2022 7:56 PM 11/16/2022 9:54 PM * Full Code Date Activated Date Inactivated Comments 12/22/2018 4:46 PM 12/26/2018 9:39 PM * Full Code Date Activated Date Inactivated Comments 12/22/2018 11:07 AM 12/22/2018 4:45 PM Healthcare Agents on File Name Relationship Healthcare Agent Relationship Communication Joanna Saeed Significant Other Health Care Agent Care Teams Qa Analyst Relationship Specialty Start Date End Date Juan Manuel Haley [address] [place] [address] PCP - General Internal Medicine 11/10/22
--- OUTSIDE RECORDS SUMMARY | 2025-07-22 18:10 | XMS_ITS | Encounter Summary ---
Author Organization [facility] Address [address] [place] [address] Care Team Providers Care Wool Hat Sanding Machine Operator Name Role Phone Juan Manuel Haley Primary Care Provider [phone] Encounter Details Date Type Department Care Team (Late st Contact Info) Description 11/17/2022 Orders Only [facility] Case Management Department [address] [place] [address] Belgica Rios Social History Tobacco Use Types Packs/Day Years Used Date Smoking Tobacco: Every Day Cigarettes 0.3 25 Smokeless Tobacco: Never Comments:: Alcohol Use Standard Drinks/Week Comments No 0 (1 standard drink = 0.6 oz pur e alcohol) Sober for 6 years Sex and Gender Information Value Date Recorded Sex Assigned at Not on file Legal Sex Male 11:37 AM EDT Gender Identity Not on file Sexual Orientation Not on file documented as of this encounter Miscellaneous Notes * Plan of Care - Belgica Rios - 11/17/2022 4:56 PM EST Case Management Admission Note: Pertinent Clinical impacting hospitalization. PA / Level of Care Change, if applicable: Patient Assessment: Met with patient at bedside- patient lives at home with his GF. He is disabled and states they havelittle income. Patient requesting ensure- regulations researched on [employer] per regulation gastrenterologist must fill out paperwork. Patient can use food stamps to purchase ensure at the market.Spoke with patients about obtaining food stamps. Per Day[facility] they are aware of the services in [place] [facility], they need to make an appointment to obtain services. Patient has gastroenteroligist Dr. Ricks they will contact he office and have them submitt information to [employer] in [place] to have ensure covered by [employer]. Patient has received them in the past, sta chris the doctor only gave him a prescription. Patient requested a walker at discharge and left hospital. Due to not having a PT eval in hospital no recommendations for use of device. Contacted [employer]- they do not deliver walkers to patients home. Cleared to medically discharge to home. Supports, HCP, Designated Caregiver, Guardian: Girlfriend dayo carpenter [phone] HCP Initial Discharge Planning: Discharge to home no services. documented in this encounter Plan of Treatment Not on file documented as of this encounter Visit Diagnoses Not on filedocumented in this encounter Care Teams Wool Hat Sanding Machine Operator Relationship Specialty Start Date End Date Juan Manuel Haley [address] [place] [address] PCP - General Internal Medicine 11/10/22 documented as of this encounter
== END 2025-07-22 16:24 | disposition home or self-care (01) ==
LOC: HO.LNP 16:23
PROVIDERS: Visit Provider Internal Medicine
DX: K90.822 Short bowel syndrome without colon in continuity (principal)
CPT/HCPCS: 80053; 83735; 84100; 84478; 85025